=== PATIENT | female | born 1990 | race Two or more races ===

== ENCOUNTER 2021-12-27 07:13 | Inpatient (IN) | payer BC ==
[2021-12-27] MEDS ORDERED: Ondansetron 4 MG/2 ML SDV IVPUSH PRN (07:33)
[2021-12-27] MEDS ORDERED: Calcium Carbonate 500 MG Tab.Chew PO PRN (07:33)
[2021-12-27] MEDS ORDERED: Sodium Chloride 0.9% 10 ML Syringe FLUSH PRN (07:33)
[2021-12-27] MEDS ORDERED: Oxytocin/Lactated Ringers 10 UNIT/1,000 ML BAG IV SCH ×2 (07:45)
[2021-12-27] MEDS ORDERED: Misoprostol 25 MCG (1/4 of 100 MCG) Tab VAG ONE ×2 (08:51→12:28)
[2021-12-27] MEDS: Sodium Chloride 0.9% 10 ML Syringe FLUSH SCH (09:01)
[2021-12-27] MEDS ORDERED: fentaNYL 100 MCG/2 ML SDV EPIDUR PRN (09:32)
[2021-12-27] MEDS ORDERED: diphenhydrAMINE 50 MG/ML SDV IVPUSH PRN (09:32)
[2021-12-27] MEDS ORDERED: Bupivacaine/fentaNYL/NS 100 ML Bag EPIDUR PRN (09:32)
[2021-12-27] MEDS ORDERED: ePHEDrine 50 MG/ML SDV IVPUSH PRN (09:32)
[2021-12-27] MEDS: Lactated Ringers 1,000 ML IV SCH ×2 (17:09→20:42)
[2021-12-28] MEDS: Nalbuphine 10 MG/1 ML Vial IVPUSH PRN ×3 (04:33→11:55)
[2021-12-28] MEDS ORDERED: fentaNYL 100 MCG/2 ML SDV EPIDUR PRN (08:52)
[2021-12-28] MEDS ORDERED: Bupivacaine/fentaNYL/NS 100 ML Bag EPIDUR PRN (08:52)
[2021-12-28] MEDS ORDERED: diphenhydrAMINE 50 MG/ML SDV IVPUSH PRN (08:52)
[2021-12-28] MEDS ORDERED: ePHEDrine 50 MG/ML SDV IVPUSH PRN (08:52)
[2021-12-28] MEDS: Sodium Chloride 0.9% 10 ML Syringe FLUSH SCH ×2 (08:57→09:01)
[2021-12-28] MEDS: Lactated Ringers 1,000 ML IV SCH ×2 (11:28→16:10)
[2021-12-28] MEDS ORDERED: Oxytocin/Lactated Ringers 20 UNIT/1,000 ML BAG IV SCH ×2 (14:30→14:45)
[2021-12-29] MEDS ORDERED: Lidocaine 1.5% with EPINEPHrine 1:200,000 5 ML Amp ONE
[2021-12-29] MEDS ORDERED: Misoprostol 200 MCG Tab ONE (00:03)
[2021-12-29] MEDS ORDERED: Misoprostol 100 MCG Tab PO ONE (00:05)
[2021-12-29] MEDS ORDERED: Hydrocortisone 1% Crm 30 GM Tube TOP PRN (01:49)
[2021-12-29] MEDS ORDERED: Acetaminophen 325 MG Tab PO PRN (01:49)
[2021-12-29] MEDS ORDERED: Witch Hazel Medicated Pads 40/Jar TOP PRN (01:49)
[2021-12-29] MEDS ORDERED: Benzocaine/Menthol 20%-0.5% Spray 78 GM Cannister TOP PRN (01:49)
[2021-12-29] MEDS: Ibuprofen 800 MG Tab PO PRN ×2 (03:38→14:05)
[2021-12-29] MEDS: Sodium Chloride 0.9% 10 ML Syringe FLUSH SCH (08:04)
[2021-12-30] MEDS: Ibuprofen 800 MG Tab PO PRN (03:29)
== END 2021-12-30 10:45 | disposition home or self-care (01) | DRG 560 ==
LOC: JD.OBCHECK 07:13 → JD.OB 07:18 → JD.OBCHECK 07:44 → OBSVTOIN 12-29 00:33 → JD.OB 12-29 00:34
PROVIDERS: ADMIT Family Medicine; ATTEND Family Medicine
PROC: 10H07YZ Insertion of Other Device into Products of Conception, Via Natural or Artificial Opening (ICD-10-PCS; 2021-12-28)
PROC: 10E0XZZ Delivery of Products of Conception, External Approach (ICD-10-PCS; principal; 2021-12-29)
PROC: 3E0P7VZ Introduction of Hormone into Female Reproductive, Via Natural or Artificial Opening (ICD-10-PCS; 2021-12-29)
PROC: 3E033VJ Introduction of Other Hormone into Peripheral Vein, Percutaneous Approach (ICD-10-PCS; 2021-12-29)
PROC: 10907ZC Drainage of Amniotic Fluid, Therapeutic from Products of Conception, Via Natural or Artificial Opening (ICD-10-PCS; 2021-12-29)
PROC: 3E0R3BZ Introduction of Anesthetic Agent into Spinal Canal, Percutaneous Approach (ICD-10-PCS; 2021-12-29)
DX: O13.4 Gestational [pregnancy-induced] hypertension without significant proteinuria, complicating childbirth (principal); Z3A.39 39 weeks gestation of pregnancy; Z37.0 Single live birth
CPT/HCPCS: 01967; 36415; 51702; 59025; 59409; 80053; 82570; 84156; 85025; 86592; A9270-GY; J2300; J2590; J3010; J7120

== ENCOUNTER 2023-04-10 07:18 | Inpatient (IN) | payer BC ==
[~2023-04-10 07:18] MED LIST: Bupivacaine 0.25% 10 ML SDV ONE
[2023-04-10] MEDS ORDERED: Nalbuphine 10 MG/0.5 ML Syringe IVPUSH PRN (07:58)
[2023-04-10] MEDS ORDERED: Ondansetron 4 MG/2 ML SDV IVPUSH PRN (07:58)
[2023-04-10] MEDS ORDERED: Calcium Carbonate 500 MG Tab.Chew PO PRN (07:58)
[2023-04-10] MEDS ORDERED: Oxytocin/Lactated Ringers 10 UNIT/1,000 ML BAG IV SCH ×2 (08:00)
[2023-04-10 08:32] LABS: BASOPHILS ABSOLUTE AUTO 0.01 K/mm3 (0.01-0.08); BASOPHILS PERCENT AUTO 0.1 % (0.1-1.2); EOSINOPHILS ABSOLUTE AUTO 0.12 K/mm3 (0.04-0.36); EOSINOPHILS PERCENT AUTO 1.6 (0.7-5.8); HEMATOCRIT 36.2 % (34.1-44.9); HEMOGLOBIN 11.8 gm/dl (11.2-15.7); IMMATURE GRAN ABSOLUTE AUTO 0.03 K/mm3 (0.00-0.10); IMMATURE GRAN PERCENT AUTO 0.4 % (<=1.0); LYMPHOCYTES ABSOLUTE AUTO 1.07 K/mm3 (1.18-3.74); LYMPHOCYTES PERCENT AUTO 14.3 % (19.3-51.7); MEAN CORPUSCULAR HEMOGLOBIN 29.1 pg (25.6-32.2); MEAN CORPUSCULAR HGB CONC 32.6 g/dl (32.2-35.5); MEAN CORPUSCULAR VOLUME 89.2 fl (79.4-94.8); MEAN PLATELET VOLUME 9.7 fl (9.4-12.3); MONOCYTES ABSOLUTE AUTO 0.53 K/mm3 (0.24-0.36); MONOCYTES PERCENT AUTO 7.1 % (4.7-12.5); NEUTROPHILS PERCENT AUTO 76.5 % (34.0-71.1); PLATELET COUNT,PLT 241 K/mm3 (182-369); RED BLOOD CELL COUNT 4.06 M/mm3 (3.98-5.22); WHITE BLOOD CELL COUNT,WBC 7.46 K/mm3 (3.98-10.04)
[2023-04-10] MEDS ORDERED: ePHEDrine 50 MG/ML SDV IVPUSH PRN (08:34)
[2023-04-10] MEDS ORDERED: Bupivacaine/fentaNYL/NS 100 ML Bag EPIDUR PRN (08:34)
[2023-04-10] MEDS ORDERED: diphenhydrAMINE 50 MG/ML SDV IVPUSH PRN (08:34)
[2023-04-10] MEDS ORDERED: fentaNYL 100 MCG/2 ML SDV EPIDUR PRN (08:34)
[2023-04-10 08:45] LABS: CREATININE 0.6 mg/dL (0.55-1.02); EST CRCL DRUG DOSING (CG) 112.38 mL/min; URIC ACID 6.5 mg/dL (2.6-6.0)
[2023-04-10] MEDS: Lactated Ringers 1,000 ML IV SCH ×2 (09:54→17:10)
[2023-04-10 13:12] LABS: CREATININE,URINE RAND 322.6 mg/dL (30.0-125.0); PROTEIN CREATININE RATIO,URINE 157.5 mg/g (0-149); PROTEIN,URINE RANDOM 50.8 mg/dL (0.0-11.8)
[2023-04-10] MEDS ORDERED: Tranexamic Acid 1,000 MG/10 ML Vial ONE (18:52)
[2023-04-10] MEDS ORDERED: Docusate Sodium 100 MG Cap PO PRN (19:17)
[2023-04-10] MEDS ORDERED: Ibuprofen 600 MG Tab PO PRN (19:17)
[2023-04-10] MEDS ORDERED: Acetaminophen 325 MG Tab PO PRN (19:17)
[2023-04-10] MEDS ORDERED: Benzocaine/Menthol 20%-0.5% Spray 78 GM Cannister TOP PRN (19:17)
[2023-04-10] MEDS ORDERED: Witch Hazel Medicated Pads 40/Jar TOP PRN (19:17)
[2023-04-10] MEDS ORDERED: ceFAZolin 2 GM in Sodium Chloride 0.9% 50 ML IV ONE (19:25)
[2023-04-10 19:32] LABS: BASOPHILS ABSOLUTE AUTO 0.01 K/mm3 (0.01-0.08); BASOPHILS PERCENT AUTO 0.1 % (0.1-1.2); EOSINOPHILS ABSOLUTE AUTO 0.03 K/mm3 (0.04-0.36); EOSINOPHILS PERCENT AUTO 0.2 (0.7-5.8); HEMATOCRIT 36.4 % (34.1-44.9); IMMATURE GRAN ABSOLUTE AUTO 0.07 K/mm3 (0.00-0.10); IMMATURE GRAN PERCENT AUTO 0.4 % (<=1.0); LYMPHOCYTES PERCENT AUTO 6.8 % (19.3-51.7); MEAN CORPUSCULAR HEMOGLOBIN 29.3 pg (25.6-32.2); MEAN CORPUSCULAR VOLUME 88.8 fl (79.4-94.8); MEAN PLATELET VOLUME 9.1 fl (9.4-12.3); MONOCYTES ABSOLUTE AUTO 0.71 K/mm3 (0.24-0.36); NEUTROPHILS ABSOLUTE AUTO 15.75 K/mm3 (1.56-6.13); NEUTROPHILS PERCENT AUTO 88.5 % (34.0-71.1); PLATELET COUNT,PLT 292 K/mm3 (182-369); WHITE BLOOD CELL COUNT,WBC 17.77 K/mm3 (3.98-10.04)
[2023-04-10 20:04] LABS: INR 0.99; PROTHROMBIN TIME 10.6 SECONDS (9.7-12.0)
[2023-04-11 05:59] LABS: MEAN CORPUSCULAR HEMOGLOBIN 29.2 pg (25.6-32.2); MEAN CORPUSCULAR VOLUME 88.5 fl (79.4-94.8); MEAN PLATELET VOLUME 9.3 fl (9.4-12.3); PLATELET COUNT,PLT 239 K/mm3 (182-369); RED BLOOD CELL COUNT 3.39 M/mm3 (3.98-5.22); WHITE BLOOD CELL COUNT,WBC 13.22 K/mm3 (3.98-10.04)
[2023-04-11 06:18] LABS: HEMOGLOBIN 9.9 gm/dl (11.2-15.7)
[2023-04-11] MEDS ORDERED: Misoprostol 200 MCG Tab PO ONE (09:07)
[2023-04-11] MEDS ORDERED: Carboprost Tromethamine 250 MCG/1 ML Amp IM ONE (09:07)
== END 2023-04-11 19:53 | disposition home or self-care (01) | DRG 560 ==
LOC: JD.OB 07:18 → OBSVTOIN 18:46 → JD.OB 18:47
PROVIDERS: ADMIT Obstetrics & Gynecology; ATTEND Obstetrics & Gynecology
PROC: 10E0XZZ Delivery of Products of Conception, External Approach (ICD-10-PCS; principal; 2023-04-10)
PROC: 0HQ9XZZ Repair Perineum Skin, External Approach (ICD-10-PCS; 2023-04-10)
PROC: 10907ZC Drainage of Amniotic Fluid, Therapeutic from Products of Conception, Via Natural or Artificial Opening (ICD-10-PCS; 2023-04-10)
PROC: 3E0P7VZ Introduction of Hormone into Female Reproductive, Via Natural or Artificial Opening (ICD-10-PCS; 2023-04-10)
PROC: 3E033VJ Introduction of Other Hormone into Peripheral Vein, Percutaneous Approach (ICD-10-PCS; 2023-04-10)
DX: O13.4 Gestational [pregnancy-induced] hypertension without significant proteinuria, complicating childbirth (principal); O70.0 First degree perineal laceration during delivery; Z37.0 Single live birth; Z3A.39 39 weeks gestation of pregnancy
CPT/HCPCS: 36415; 59025; 59409; 82565; 82570; 83615; 84156; 84450; 84460; 84520; 84550; 85025; 85027; 85384; 85610; 86592; A9270-GY; J2405; J2590; J3010; J3490; J7120